=== PATIENT | female | born 1955 | race Caucasian/White ===

== ENCOUNTER 2018-05-17 15:04 | Inpatient (IN) | payer MEDICARE ==
[~2018-05-17] VITALS: Ht 160 cm; Wt 80.5 kg
[2018-06-13] VITALS (10 sets, daily range): BP systolic 134–166; BP diastolic 50–96; PULSE 70–92; TEMP 97.8–98.7
[2018-06-13] MEDS ORDERED: EFFEXOR-XR150 MG PO (06:26)
[2018-06-13] MEDS ORDERED: PRINZIDE 12.5 M1 TA1 PO (06:26)
[2018-06-13] MEDS ORDERED: OMEGA-3 1000 MG1 CAP PO (06:27)
[2018-06-13] MEDS ORDERED: THE MEDICINE S200 M2 PO (06:27)
[2018-06-13] MEDS ORDERED: MOBIC15 MG PO (06:28)
[2018-06-13] MEDS ORDERED: ULTRAM 50MG TAB50 MG PO (06:28)
[2018-06-13] MEDS ORDERED: GLUCOSAMINE & C1 TE1 PO (06:28)
[2018-06-13] MEDS ORDERED: VITAMIN D31000 I1 PO (06:29)
[2018-06-13] MEDS ORDERED: VITAMIN K2 PO (06:30)
--- NOTE | 2018-06-13 11:50 | NUR ---
PATIENT BACK IN ROOM 332 POST OP RTS. VERY DROWSY. VSS. RTS DRESSING IS CD&I WITH AQUACEL, ABDUCTOR SLING AND ICE PACK. PATIENT IS UNABLE TO MOVE FINGERS TO RUE. LUE IS FLACID, WHICH IS NOT NEW FOR PATIENT. PATIENT HAS HX OF BREAST CA, WITH LYMPH NODES REMOVED AND RADIATION. NOTED LYMPH EDEMA TO LUE. B/P CUFF TO LLE. IV IN RIGHT ANKLE INFUSING VIA PUMP. CHAVEZ TO DEPENDENT DRAINAGE WITH SMALL AMOUNTS OF CLEAR YELLOW URINE. NO C/O N/V. LIQUIDS AT BEDSIDE. HEAD TO TOE ASSESSMENT COMPLETE. MOTHER AT BEDSIDE. ORIENTED TO ROOM. CALL LIGHT IN REACH.
--- NOTE | 2018-06-13 16:17 | NUR ---
plugger worker met with patient and her sister, Nina, to discuss discharge planning. Patient lives alone in [place] and plans to return upon discharge. Patient states her primary care provider is Dr Sinai Carpenter. Patient states she does not have prescription drug coverage and drives to [place] to obtain medications as a cheaper leary. Patient states she will be using a pharmacy in [place] for medicines needed after this surgery. Nina states that she lives close to patient and will assist with needs. Nina states someone will stay with patient if that is necessary. Worker and patient discussed home health versus outpatient physical therapy. Patient states she has contacted [facility] regarding outpatient therapy, however, is open to home health if that is recommended. Will await therapy consults to help with disposition.
--- NOTE | 2018-06-13 20:35 | NUR ---
Assessment completed. Patient is A&O x 4. VSS, currently on 3 liters of supplemental O2 via nasal cannula. Began Oxycodone for right shoulder pain control. Aquacell dressing to right shoulder is CDI. Patient denies any numbness/tingling to RUE. Abductor brace in place to RUE. Mcelroy catheter to DD with yellow clear urine draining. Tolerating diet with no c/o nausea, patient's sister assisted with eating at bedside. IVF infusing with intermittent antibiotc via right ankle. Patient was up with assist x 2 with gait belt, ambulated approximately 200 feet this evening in the hallway. 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
[2018-06-14 00:16] VITALS: BP 131/52; PULSE 72; TEMP 98.7
[2018-06-14 04:16] VITALS: BP 133/57; PULSE 58; TEMP 98.6
--- NOTE | 2018-06-14 06:13 | NUR ---
Patient has rested well through the night, is emotional this morning sobbing about not being able to use her right upper extremity and having to rely on people to help her. Lots of reassurance and emotional support given to patient. Aquacell dressing to right shoulder remains CDI with an ice pack applied this morning. Denies any concerns or needs, call light on chest within patients reach.
--- NOTE | 2018-06-14 07:30 | NUR ---
PATIENT IS A&O. VSS. REPORTS LITTLE DISCOMFORT AT REST. PATIENT IS VERY EMOTIONAL AND CRYING. PATIENT IS CRYING ABOUT HERE CAT THAT PASSES AWAY, HER MOTHER THAT IS IN A LONGTERM AND MANY OTHER TOPICS THAT CHANGE RANDOMLY. PATIENT GIVEN PRN ATIVAN. NURSING SPENT A LOT OF TIME TALKING WITH PATIENT WHICH SEEMED TO HELP. DC'D CHAVEZ PER ORDERS. NOTED MOD AMOUNTS OF CLEAR YELLOW URINE. RIGHT ANKLE IV TO INT. NO C/O N/V. PATIENT ASSISTED INTO BEDSIDE CHAIR. RTS DRESSING IS CD&I WITH AQUACEL AND ABDUCTOR SLING INPLACE. LUE FLACID WHICH IS CHRONIC FOR HER. NOTED MOD LYMPHEDEMA TO LUE. AM MEDS GIVEN. STEEL SPAR OPERATOR ASSISTING WITH BREAKFAST ORDER. NO OTHER NEEDS. CALL LIGHT IN REACH.
[2018-06-14 08:16] VITALS: BP 146/51; PULSE 69; TEMP 97.5
[2018-06-14 12:02] VITALS: BP 159/71; PULSE 79; TEMP 97.7
[2018-06-14] MEDS ORDERED: NORCO 325 MG-7.1 TAB PO (12:28)
[2018-06-14] MEDS ORDERED: ASPI325T6 PO (12:28)
[2018-06-14] MEDS ORDERED: ROXICODONE 55 MG/TAB PO (12:29)
[2018-06-14] MEDS ORDERED: TYLENOL 500MG500 MG PO (12:29)
[2018-06-14] MEDS ORDERED: ZANTAC 150MG T150 MG PO (12:30)
--- NOTE | 2018-06-14 13:23 | NUR ---
SHAWANDA met with the patient and patient's sister, Nina, to discuss physical therapies recommendation of home health. The patient reports that she would be agreeable to services. SHAWANDA provided the patient with [email or web address]'s list of home health agencies that serve [place]. The patient and patient's sister preferred [facility]. SHAWANDA has contacted and faxed a referral to [facility]. SW awaiting their screening.
--- NOTE | 2018-06-14 13:30 | NUR ---
PATIENT DISCHARGING HOME VIA WHEELCHAIR TO PERSONAL VEHICLE WITH SISTER. GAVE DISCHARGE INSTRUCTIONS, PRESCRIPTIONS, AQUACEL AND FOLLOW UP APT. PATIENT DISCHARGING HOME WITH HOME HEALTH. DC'D RIGHT ANKLE IV, COVERED WITH GAUZE, BANDAID AND COBAN APPLIED. PATIENT DISCHARGED.
--- NOTE | 2018-06-14 13:43 | NUR ---
Initial visit; Patient thanked Coordinate Measuring Machine Operator for looking in on her and offering God's blessings.
--- NOTE | 2018-06-14 15:41 | NUR ---
Juarez, at [facility] [place] [place], reports that they can accept the patient for services. The patient is to discharge back home with her sister today, 06/14, with home health services for PT/OT through [facility]. No additional needs at this time.
== END 2018-06-14 13:30 | disposition home health service (06) | DRG 483 ==
LOC: JCC 06-13 05:20
PROVIDERS: ADMIT Orthopaedic Surgery
PROC: 0RRJ0JZ Replacement of Right Shoulder Joint with Synthetic Substitute, Open Approach (ICD-10-PCS; principal; 2018-06-13 07:30)
DX: M19.011 Primary osteoarthritis, right shoulder (principal); M25.212 Flail joint, left shoulder; I10 Essential (primary) hypertension; Z85.3 Personal history of malignant neoplasm of breast; Z87.891 Personal history of nicotine dependence; F41.9 Anxiety disorder, unspecified; E78.5 Hyperlipidemia, unspecified
CPT/HCPCS: A4314; A9284; C1713; C1776; J0690; J1100; J1170; J1885; J2405; J2704; J3010; J3370; J7120